=== PATIENT | female | born 1985 | race American Indian/Alaskan Native ===

== ENCOUNTER 2019-02-18 11:03 | Emergency (ER) | payer SELFPAY ==
[2019-02-18 11:11] VITALS: BP 129/82
--- NOTE | 2019-02-18 11:15 | Emergency Department Report ---
Stated Complaint: 8WKS PREG/BLEEDING/PAIN Time Seen by Provider: 02/18/19 11:10 - HPI History of Present Illness: This is a 33 y.o. female that presents to the ER with vaginal bleeding that started a few minutes ago. Patient is 8 weeks . [facility] at [place]. A1, stillborn. Denies abdominal pain or low back pain. - Exam Vital Signs: Vital Signs 02/18/19 11:10 Temperature 98 F Pulse Rate 93 H Respiratory 18 Rate Blood Pressure 129/82 O2 Sat by Pulse 99 Oximetry MSE screening note: Focused history and physical exam performed. Due to findings the following was ordered: Labs ED Medical Decision Making - Medical Decision Making Patient states she would like to follow up at [place] where her [facility] is located. Patient/guardians urged not to elope from the ED as their condition may be serious if not clinically assessed and managed. She left the hospital/emergency room AGAINST MEDICAL ADVICE. ED Disposition for MSE Condition: Stable Referrals: CÉSAR DEL CASTILLO MD [Referring] - 3-5 Days
== END 2019-02-18 11:16 | disposition left against medical advice (07) ==
LOC: ED 11:03
DX: O20.8 Other hemorrhage in early pregnancy (principal); Z53.21 Procedure and treatment not carried out due to patient leaving prior to being seen by health care provider